=== PATIENT | female | born 1975 | race Two or more races ===

== ENCOUNTER 2023-10-19 11:03 | Emergency (ER) | payer MEDICAID, OTHER ==
[~2023-10-19] VITALS: Ht 152.4 cm; Wt 55.8 kg
[2023-10-19 12:33] VITALS: BP 116/78; PULSE 74; RESP 20; O2SAT 97
[2023-10-19] MEDS: hydrOXYzine 25 MG TAB or CAP PO ONE (13:33)
[2023-10-19] MEDS: ONDANSETRON ODT 4 MG TAB PO ONE (13:33)
[2023-10-19 13:34] VITALS: TEMP 97.6
[2023-10-19] MEDS: ACETAMINOPHEN 500 MG TAB PO ONE (13:34)
[2023-10-19] MEDS: KETOROLAC TROMETH 30 MG/ML 1ML VIAL IM ONE (13:35)
[2023-10-19] MEDS ORDERED: ZOFR4T PO (13:59)
[2023-10-19] MEDS ORDERED: NABU-72 PO (13:59)
== END 2023-10-19 14:09 | disposition home or self-care (01) ==
LOC: ER 11:03
DX: R51.9 Headache, unspecified (principal)
CPT/HCPCS: 70450; 96372; 99285; J1885; Q0162